=== PATIENT | male | born 1945 | race Caucasian/White ===

== ENCOUNTER 2016-08-18 11:30 | Day surgery (SDC) | payer MEDICARE, BC ==
[2016-08-16 15:28] VITALS: BMI 25.8
[~2016-08-18 11:30] MED LIST: ALBUTEROL NEB (CONC) 2.5 MG/0.5 ML INHALATION ONE; ATROPINE SULFATE 0.4 MG/ML 1 ML VIAL IM ONE; LACTATED RINGERS 1,000 ML IV ONE; LACTATED RINGERS 1,000 ML IV SCH; LIDOCAINE 1% 20 ML VIAL (10MG/ML) FOR IV START INTRADERMA PRN; LIDOCAINE 2% (PF) 20 MG/ML 10ML INHALATION ONE
[2016-08-18 12:22] VITALS: RESP 18; TEMP 97.8
[2016-08-18] MEDS ORDERED: PROPOFOL 10 MG/ML 20 ML VIAL IV ONE (12:39)
[2016-08-18] MEDS ORDERED: MIDAZOLAM 2 MG/2 ML VIAL ONE (12:39)
[2016-08-18] MEDS ORDERED: LIDOCAINE 1% INJ 10MG/ML (20 ML MDV) ONE (12:39)
[2016-08-18] MEDS ORDERED: KETAMINE 10 MG/ML 20 ML VIAL ONE (12:39)
[2016-08-18] MEDS ORDERED: LIDOCAINE 2% INJ 20 MG/ML INTRATRACH ONE (13:00)
--- NOTE | 2016-08-18 13:23 | XR ---
EXAMINATION TYPE: XR chest 1V portable DATE OF EXAM: 08/18/2016 1:16 PM COMPARISON: NONE HISTORY: Post bronchoscopy TECHNIQUE: Single frontal view of the chest is obtained. FINDINGS: Subsegmental consolidation left lower lobe. Right lung clear. Hypertrophic change of the s pine. Arthropathy of the shoulders. No sizable pneumothorax. IMPRESSION: 1. Subsegmental consolidation left lower lobe with no sizable pneumothorax. 2. Right hilum is somewhat convex. Underlying adenopathy in the differential.
--- NOTE | 2016-08-18 13:56 | FL ---
EXAMINATION TYPE: FL bronchoscopy DATE OF EXAM: 08/18/2016 1:15 PM COMPARISON: NONE HISTORY: Fluoroscopy time TECHNIQUE: Fluoroscopy. FINDINGS: . A total of 1 minute and 37 seconds of fluoroscopic time was utilized during the procedu re. IMPRESSION: As Above.
[2016-08-18 14:04] VITALS: BP 122/80; PULSE 80
[2016-08-18 18:26] LABS: RBC, Body Fluid 62000 /uL
--- NOTE | 2016-08-18 22:08 | PCN ---
DATE OF PROCEDURE: PROCEDURE PERFORMED: Bronchoscopy, airway examination, therapeutic lavage, bronchoalveolar lavage, transbronchial biopsies left lower lobe, cytology and washes left lower lobe, brushes left lower lobe. PREOPERATIVE DIAGNOSIS: Mass versus infiltrate; infection versus cancer. The procedure was done in Room #1 of the [facility]. It was done. The [employer] provided unconscious sedation and general anesthesia. Procedure was done by myself Dr. Alaniz and Dr. Elsy Otto. The procedure as I mentioned above was noted. There was informed consent. There was universal timeout. [employer] provided proper sedation. After the patient was adequately sedated and being fully monitored, the bronchoscope was inserted through the right nostril. It passed through the right nasopharynx into the oropharynx. The hypopharynx was identified and topicalized. Anterior commissure, true cords, false cords, arytenoids, piriform sinuses, right and left vallecula and epiglottis all appeared normal. After topicalization of the glottic opening, the bronchoscope was pushed through the glottic opening into the trachea. Trachea appeared normal. Tracheal ynes was sharp. Right and left mainstem were topicalized. The right upper lobe and its 3 segments, the right middle lobe and its segments, the right lower lobe and its 5 segments were all normal. On the left side likewise, left upper lobe proper and its 2 segments, the lingula and its 2 segments, and the left lower lobe and its 4 segments were all normal. There were no endobronchial mass or tumor. We were able to position the bronchoscope into the basal segments of the left lower lobe. Under fluoroscopic guidance, we did brushes initially. Then we did multiple transbronchial biopsies under fluoroscopic guidance. Finally we did a wash of the left lower lobe. The patient tolerated the procedure well. There was no significant bleeding. We checked for a pneumothorax prior to removing the bronchoscope. There was none. A chest x-ray was ordered. The patient tolerated the procedure well and there was no immediate complications.
== END 2016-08-18 14:18 | disposition home or self-care (01) ==
LOC: ORWHC2ENDO 11:30
PROVIDERS: ATTEND Internal Medicine Critical Care Medicine
DX: R91.8 Other nonspecific abnormal finding of lung field (principal); M10.9 Gout, unspecified; Z79.1 Long term (current) use of non-steroidal anti-inflammatories (NSAID); Z79.899 Other long term (current) drug therapy
CPT/HCPCS: 94640; 87798 ×4; 87496; 87498; 87529 ×2; 88104; 88108; 88305; 89050; 87252; 87502 ×2; 87070; 87205; 87116; 87102; 87206; 71010; 31628; 31623; 31624; J2001 ×3; J2250; J0461; J2704